=== PATIENT | male | born 1960 | race Caucasian/White ===

== ENCOUNTER 2018-05-26 09:10 | Inpatient (IN) | payer OTHER ==
[~2018-05-26] VITALS: Ht 188 cm; Wt 107.8 kg
[2018-05-26 09:59] LABS: CREATININE 1.5 mg/dL (0.5-1.5)
[2018-05-26 10:05] LABS: ALBUMIN 3.3 g/dL (3.5-5.0); BILIRUBIN,TOTAL 1.3 mg/dL (0.2-1.0); TOTAL PROTEIN, SERUM 8.4 g/dL (6.0-8.3)
[2018-05-26 10:06] LABS: BASOPHILS % (AUTO) 0.5 % (0.0-5.0); EOSINOPHILS % (AUTO) 0.6 % (0.0-8.0); LYMPHOCYTES % (AUTO) 6.9 % (21.0-51.0); MEAN CORPUSCULAR HEMOGLOBIN 30.2 pg (27.0-33.0); MEAN CORPUSCULAR HGB CONC 34.4 g/dL (32.0-36.0); MEAN CORPUSCULAR VOLUME 87.8 fL (79-99); PLATELET COUNT (AUTO) 266 K/uL (130-400); RED BLOOD CELL COUNT(AUTO) 4.45 MIL/uL (4.50-6.20); RED CELL DISTRIBUTION WIDTH 12.7 % (11.0-15.5); WHITE BLOOD COUNT (AUTO) 13.1 K/uL (4.8-10.8)
[2018-05-26] MEDS ORDERED: LEVOFLOXACIN 750 MG/D5W 150 ML 150 ML ONE (10:08)
[2018-05-26] MEDS ORDERED: ONDANSETRON HCL 4 MG/2 ML VIAL IV PRN (11:30)
[2018-05-26] MEDS ORDERED: VANCOMYCIN 1GM+NS 250ML 250 ML IV SCH (11:30)
[2018-05-26] MEDS ORDERED: MORPHINE SULFATE 4 MG/1ML SYG IV PRN (11:30)
[2018-05-26] MEDS ORDERED: ACETAMINOPHEN 325 MG TAB PO PRN ×2 (11:30)
[2018-05-26] MEDS ORDERED: VANCOMYCIN PROTOCOL PER PHARMACY IV PRN (11:30)
[2018-05-26] MEDS ORDERED: MORPHINE SULFATE 2 MG/ML 1ML SYG IV PRN (11:30)
[2018-05-26] MEDS ORDERED: HYDRALAZINE HCL 20 MG/ML VIAL IV PRN (11:30)
[2018-05-26] MEDS ORDERED: VANCOMYCIN PROTOCOL PER PHARMACY IV SCH (12:30)
[2018-05-26] MEDS ORDERED: VANCOMYCIN 1GM+NS 250ML 250 ML IV ONE (12:42)
[2018-05-26 12:45] LABS: HEMOGLOBIN A1C 6.6 % (4.0-6.0)
[2018-05-26 14:36] LABS: APPEARANCE,URINE Clear (CLEAR); BILIRUBIN,URINE Negative (NEGATIVE); COLOR,URINE Dark Yellow (YELLOW); GLUCOSE, URINE (UA) Negative (NEGATIVE); KETONES,URINE Trace mg/dL (NEGATIVE); LEUKOCYTE ESTERASE ,URINE Negative (NEGATIVE); NITRATE,URINE Negative (NEGATIVE); OCCULT BLOOD,URINE Negative (NEGATIVE); PROTEIN,URINE POS 2+ (NEGATIVE)
[2018-05-26 14:55] LABS: BACTERIA,URINE Rare /HPF (None Seen); RBC,URINE None Seen /HPF (0-1); SQUAMOUS EPITHELIAL CELL,UR None Seen /HPF (0-2); WBC,URINE 0-1 /HPF (0-1)
[2018-05-26] MEDS ORDERED: MEROPENEM 500 MG VIAL ONE (17:59)
[2018-05-26] MEDS ORDERED: SODIUM CHLORIDE 0.9% 100 ML IV ONE (17:59)
[2018-05-26 18:47] VITALS: BP 150/80
[2018-05-26] MEDS: MEROPENEM 500 MG VIAL IV SCH (19:30)
--- NOTE | 2018-05-26 19:45 | NUR ---
Admission Assessment Received pt from ED change of shift with no family around, DX: Acute Osteomyelitis,diabetic rt foot ulcer, foreign body. Routine admission assessment done, plan of care discuss made aware he is pending to be seen by Dr. Rich kiln car repairer & Dr. [place] KENT. Pt updated with all test done in ED with all concern questions addressed. Per pt claimed wound to the rt big toe, dorsal side has been for a year, seen by deferent physician but no one said anything. Pt made aware re: foreign object present in his wound which pt claimed never remembers stepping/hitting his foot. Pt also declined to have any type of vaccination.
[2018-05-26] MEDS ORDERED: COMPOUND IV REFRIGERATED 1 EACH IVSOLN MISC PRN (20:30)
[2018-05-26] MEDS ORDERED: CLOP75TA32 PO (20:47)
[2018-05-26] MEDS ORDERED: GLIP5TAB11 PO (20:47)
[2018-05-26] MEDS ORDERED: AEC81 PO (20:47)
[2018-05-26] MEDS ORDERED: ATOR10TA69 PO (20:47)
[2018-05-26] MEDS ORDERED: SITA100T12 PO (20:47)
[2018-05-26 23:00] VITALS: BP 130/91
[2018-05-27] MEDS: VANCOMYCIN 1.5 GM in SODIUM CHLORIDE 0.9% 250 ML IV SCH ×3 (00:09→21:00)
[2018-05-27] MEDS: INSULIN GLARGINE 100 UNITS/ML 10 ML VIAL SQ SCH ×2 (00:12→21:07)
[2018-05-27] MEDS: INSULIN HUMULIN R 100 UNIT/ML 3ML SQ SCH ×5 (00:13→21:08)
[2018-05-27 03:17] VITALS: BP 130/77
[2018-05-27] MEDS: MEROPENEM 500 MG VIAL IV SCH ×3 (03:48→20:59)
[2018-05-27] MEDS: INSULIN LISPRO 100 UNIT/ML 3ML SQ SCH ×3 (06:58→17:00)
[2018-05-27 07:28] VITALS: BP 134/76
[2018-05-27] MEDS: ENOXAPARIN SODIUM 40 MG/0.4 ML SYRINGE SQ SCH (11:19)
[2018-05-27] MEDS: ASPIRIN 81 MG EC TAB PO SCH (11:37)
--- NOTE | 2018-05-27 12:17 | NUR ---
Nutrition Intervention: Nutrition consult due to trigger. Pt. admitted with Dx of Acute osteomyelitis, diabetic right foot ulcer. Pt. on 75gm CCD diet. Pt. reports good p.o. intake and no problems with N/V. Labs reviewed(Alb 3.3). LBM: 05/26/18. SR-19, right big toe ulcer. BMI: 30.5, obesity Grade 1. Pt. with 2+ edema to right foot. BMI: 30.5, Obesity Grade 1. Recommendations: 1) Rec. 75gm CCD Heart healthy diet. 2) Rec. 30ml ProMod BID with B'fast and dinner meals. 3) Rec. 500mg Vit. C BID and 220mg Zn Sulfate QD to help promote wound healing. 4) Continue to monitor pt's nutritional status. 5) RD to f/u in 5-7 days. Addendum: 05/27/18 at [address] Amended: Links added.
[2018-05-27 12:21] VITALS: BP 125/95
[2018-05-27 15:39] VITALS: BP 154/98
--- NOTE | 2018-05-27 16:42 | NUR ---
INITIAL: Met with pt this afternoon to discuss dcp. Pt states that he lives w his 14 yo dtr. Prior to admission pt was independent w ambulation and ADLs. He drives where needed and does not own any DME. Pt states that he feels safe and comfortable to [place]. Will continue to follow and wait for Md recommendations. Addendum: 05/28/18 at 1644 by ANGELITA YODER CM Amended: Links added.
[2018-05-27 19:12] VITALS: BP 144/78
[2018-05-27] MEDS: ATORVASTATIN CALCIUM 10 MG TABLET PO SCH (20:59)
[2018-05-27 23:00] VITALS: BP 136/73
[2018-05-28 03:00] VITALS: BP 128/74
[2018-05-28] MEDS: MEROPENEM 500 MG VIAL IV SCH (04:24)
[2018-05-28] MEDS: GUAIFENESIN-DM 200/20 MG 10 ML PO PRN ×2 (05:39→16:17)
[2018-05-28] MEDS: INSULIN LISPRO 100 UNIT/ML 3ML SQ SCH ×3 (06:20→18:11)
[2018-05-28] MEDS: INSULIN HUMULIN R 100 UNIT/ML 3ML SQ SCH ×4 (06:22→21:00)
[2018-05-28 06:32] LABS: HEMATOCRIT 35.7 % (42-54); MEAN CORPUSCULAR HEMOGLOBIN 30.6 pg (27.0-33.0); MEAN CORPUSCULAR HGB CONC 34.9 g/dL (32.0-36.0); MEAN CORPUSCULAR VOLUME 87.5 fL (79-99); PLATELET COUNT (AUTO) 288 K/uL (130-400); RED BLOOD CELL COUNT(AUTO) 4.08 MIL/uL (4.50-6.20); RED CELL DISTRIBUTION WIDTH 12.7 % (11.0-15.5); WHITE BLOOD COUNT (AUTO) 9.2 K/uL (4.8-10.8)
[2018-05-28 06:51] LABS: ALBUMIN 2.6 g/dL (3.5-5.0); BILIRUBIN,TOTAL 0.7 mg/dL (0.2-1.0); CREATININE 1.3 mg/dL (0.5-1.5); TOTAL PROTEIN, SERUM 7.5 g/dL (6.0-8.3)
[2018-05-28 08:00] VITALS: BP 139/71
[2018-05-28] MEDS: ASPIRIN 81 MG EC TAB PO SCH (10:56)
[2018-05-28] MEDS: METOPROLOL TARTRATE 25 MG TAB PO SCH ×2 (10:57→21:47)
[2018-05-28] MEDS: CADEXOMER IODINE 40 GM GEL TP SCH (10:57)
[2018-05-28] MEDS: ENOXAPARIN SODIUM 40 MG/0.4 ML SYRINGE SQ SCH (10:57)
[2018-05-28] MEDS ORDERED: GADODIAMIDE 5 MMOL/10 ML VIAL 5 MMOL/10 ML ML IV ONE (11:06)
[2018-05-28 12:50] VITALS: BP 135/72
[2018-05-28] MEDS ORDERED: PHARMACY COMMUNICATION MISC SCH (14:45)
--- NOTE | 2018-05-28 15:05 | NUR ---
PENICILLIN ALLERGY AND ROCEPHIN Patient started on rocephin per Dr. Berumen. Patient reported an allergy to penicillin a a child where he developed hives. Dr. Berumen was made aware and stated to give the rocephin anyway. Pharmacy was made aware, as it had placed a hold on medication due to allergy. OKs to give the rocephin anyway.
[2018-05-28] MEDS: CEFTRIAXONE SODIUM 2 GM VIAL IVP SCH (15:51)
[2018-05-28 16:00] VITALS: BP 135/72
--- NOTE | 2018-05-28 16:46 | NUR ---
REHAB/NH: Met w pt this afternoon to discuss Md order/recommendation for Rehab/NH @ dc. Pt states this is not an option for him as he has a 14yo dtr at home that he needs to get home to. Pt states that he currently has a friend from out of town assisting to care for dtr while he is here. Pt states that he will speak w Md in am regarding other options such as HH vs [facility] if IV ABX or wound care needed @ dc. CM to continue to follow. Primary nurse in room during above discussion, states will also pass it along in report.
[2018-05-28 19:00] VITALS: BP 132/69
[2018-05-28] MEDS: ATORVASTATIN CALCIUM 10 MG TABLET PO SCH (21:47)
[2018-05-28] MEDS: INSULIN GLARGINE 100 UNITS/ML 10 ML VIAL SQ SCH (21:51)
[2018-05-28 23:25] VITALS: BP 134/76
[2018-05-29 03:10] VITALS: BP 131/64
[2018-05-29] MEDS: INSULIN HUMULIN R 100 UNIT/ML 3ML SQ SCH ×4 (06:10→21:00)
[2018-05-29] MEDS: INSULIN LISPRO 100 UNIT/ML 3ML SQ SCH ×3 (06:27→17:00)
[2018-05-29 06:49] LABS: HEMATOCRIT 35.2 % (42-54); MEAN CORPUSCULAR HEMOGLOBIN 29.6 pg (27.0-33.0); MEAN CORPUSCULAR HGB CONC 33.8 g/dL (32.0-36.0); MEAN CORPUSCULAR VOLUME 87.4 fL (79-99); PLATELET COUNT (AUTO) 286 K/uL (130-400); RED BLOOD CELL COUNT(AUTO) 4.03 MIL/uL (4.50-6.20); RED CELL DISTRIBUTION WIDTH 12.9 % (11.0-15.5); WHITE BLOOD COUNT (AUTO) 11.3 K/uL (4.8-10.8)
[2018-05-29 07:30] VITALS: BP 137/84
[2018-05-29] MEDS: ASPIRIN 81 MG EC TAB PO SCH (10:09)
[2018-05-29] MEDS: METOPROLOL TARTRATE 25 MG TAB PO SCH ×2 (10:09→21:42)
[2018-05-29] MEDS: ENOXAPARIN SODIUM 40 MG/0.4 ML SYRINGE SQ SCH (10:10)
[2018-05-29] MEDS: CADEXOMER IODINE 40 GM GEL TP SCH (10:11)
[2018-05-29 11:40] VITALS: BP 141/79
[2018-05-29] MEDS: CEFTRIAXONE SODIUM 2 GM VIAL IVP SCH (15:21)
--- NOTE | 2018-05-29 15:29 | NUR ---
DC Plan Discussed dcp w/ patient and Dr. Hays at bedside. Dr. Hays signed AIU form. Patient signed HANSEL and choice letter for [facility]. Patient's toe now draining. Dr. Berumen spoke to Dr. Rich on cell. Dr. Rich to come back and evaluate patient. Asked Dr. Berumen about PICC. Informed CM to not fax referral until Dr. Rich gives recommendation. CM to continue to follow. CD Addendum: 05/29/18 at 1533 by LEONEL EAST CM Amended: Links added.
[2018-05-29 16:00] VITALS: BP 140/81
--- NOTE | 2018-05-29 16:50 | NUR ---
DRSG TO HIS RT FOOT. GREAT TOE. DONE,, CLEANSE WITH SALINE PAD DRY AND APPLICATION OF ISOBORB GEL APPLICATION ON. WRAP WITH KERLIX NOTED NO DRAINAGE TO SITE, , TOLERATE WELL
--- NOTE | 2018-05-29 18:00 | NUR ---
DR. SRINIVASAN HERE AND SPOKE WITH PT . REGARDING CARE TO HIS RT FOOT.. WITH DR. ESPINOZA TO FOLLOW .CALLED THE HOUSE SUPERVIOR REGARDING SURGERY PER . ORDERS IN AM DR. SRINIVASAN REMOVE THE DRSG TO HIS RTFOOT. FOR ASESSEMENT .
[2018-05-29 19:00] VITALS: BP 124/98
--- NOTE | 2018-05-29 20:24 | NUR ---
PATIENT REFUSED PROCEDURE Patient states he will not have MD Rich do the procedure because MD Rich took very long to see patient. Apologized for the delay and explained to patient that his foot is very infected and may not be a good idea to delay procedure. Patient states he doesn't care and wants a new foot doctor or he will go to [facility]. Nakul Childs NP is rounding on the floor. Spoke to her of patient refusing MD Rich to do I&D on right foot. CORE CLEANER states to please call MD Rich to let him know of patient's request. Will page MD Rich.
--- NOTE | 2018-05-29 20:30 | NUR ---
MD RICH Paged MD Rich; returned paged. Informed MD Rich of patient refusing tomorrow's procedure of I&D to right foot. Explained that patient was very upset for MD showing up late to see patient. After trying to convince patient to reconsider, patient states he does not want MD Rich to touch him. MD Rich states to please inform MD Amin and MD Paredes. Will page MD Paredes. DIANNE Childs states she will notify MD Amin. Addendum: 05/29/18 at 2223 by JONELLE ALVARES LVN LVN MD RICH STATES HE IS OFF THE CASE AND TO PLEASE INFORM MD AMIN AND MD PAREDES.
--- NOTE | 2018-05-29 20:40 | NUR ---
MD PAREDES Paged MD Paredes; returned page. Informed him of patient refusing I&D procedure for tomorrow and requesting for MD to be removed from the case. MD Paredes states to add & consult MD Back. Will page MD Back.
--- NOTE | 2018-05-29 20:42 | NUR ---
MD BACK Paged MD Back. Returned page and informed him of MD Berumen's request for MD Back to be consulted. Explained and informed MD Back of patient's diagnose, health information, lab results, and foot x-ray & mri. MD Back states he will come by some time tonight to see patient.
[2018-05-29] MEDS: INSULIN GLARGINE 100 UNITS/ML 10 ML VIAL SQ SCH (21:40)
[2018-05-29] MEDS: ATORVASTATIN CALCIUM 10 MG TABLET PO SCH (21:42)
--- NOTE | 2018-05-29 22:05 | NUR ---
PAGED MD CAROLINE Back called to inform that he would not be able to see patient and be on the case. also states he would not be able to do procedure due to his patients and other procedures. MD Back apologized and asked for MD Lin Peña to be consulted. [employer] stores and agencies supervisor and PAYROLL [employer] BENEFITS SPECIALIST Nakul Childs provided MD's phone number. Called to [phone]; no answer but did leave message on voice mail. Will endorse to day nurse to consult MD Peña. Explained to patient that MD Back will not be able to see patient due to overflow of procedures with his current patients. However, patient was informed that MD Back recommended MD Peña and will be page in am. Recommended patient to be NPO after midnight and bathed early am just incase MD Peña wants to do a procedure tomorrow, 05/30/18. Patient states he is understands and is ok with the plan.
[2018-05-29 23:00] VITALS: BP 121/82
[2018-05-30 03:00] VITALS: BP 118/64
[2018-05-30 05:40] LABS: BASOPHILS % (AUTO) 0.6 % (0.0-5.0); EOSINOPHILS % (AUTO) 4.1 % (0.0-8.0); HEMATOCRIT 36.8 % (42-54); LYMPHOCYTES % (AUTO) 14.5 % (21.0-51.0); MEAN CORPUSCULAR HEMOGLOBIN 30.2 pg (27.0-33.0); MEAN CORPUSCULAR HGB CONC 34.4 g/dL (32.0-36.0); MEAN CORPUSCULAR VOLUME 87.7 fL (79-99); MONOCYTES % (AUTO) 9.5 % (3.0-13.0); NEUTROPHILS % (AUTO) 71.3 % (40.0-77.0); PLATELET COUNT (AUTO) 333 K/uL (130-400); RED CELL DISTRIBUTION WIDTH 12.8 % (11.0-15.5); WHITE BLOOD COUNT (AUTO) 10.5 K/uL (4.8-10.8)
[2018-05-30 05:54] LABS: CREATININE 1.2 mg/dL (0.5-1.5); POTASSIUM 4.1 mmol/L (3.5-5.1)
[2018-05-30] MEDS: INSULIN HUMULIN R 100 UNIT/ML 3ML SQ SCH ×2 (06:31→11:30)
[2018-05-30] MEDS: INSULIN LISPRO 100 UNIT/ML 3ML SQ SCH ×2 (07:18→11:30)
[2018-05-30 08:00] VITALS: BP 129/85
--- NOTE | 2018-05-30 08:15 | NUR ---
DR. LUU WAS CALLED , WITH NO ANSWER . MESSAGE LEFT OF THE CONSULTATION .
[2018-05-30] MEDS: ASPIRIN 81 MG EC TAB PO SCH (09:00)
[2018-05-30] MEDS: ENOXAPARIN SODIUM 40 MG/0.4 ML SYRINGE SQ SCH (09:00)
[2018-05-30] MEDS: CADEXOMER IODINE 40 GM GEL TP SCH (09:00)
[2018-05-30 09:02] LABS: INR 1.08 (0.85-1.15); PARTIAL THROMBOPLASTIN TIME 30.9 SEC (26.3-35.5); PROTHROMBIN TIME 11.3 SEC (9.6-11.6)
[2018-05-30] MEDS: METOPROLOL TARTRATE 25 MG TAB PO SCH (09:59)
[2018-05-30 12:18] VITALS: BP 140/74
--- NOTE | 2018-05-30 13:30 | NUR ---
PT . STATED THAT HE WAS NOT GOING TO WAIT FOR THE DR. ALL DAY LONG WANTS TO LEAVE AMA . STATED THAT HE WOULD GO TO SEE HIS PRIVATE DR. TO GET CARE. REVIEW THE AMA STATED THAT IT WAS OKAY
--- NOTE | 2018-05-30 14:00 | NUR ---
AMA PT . SIGNED AMA . REFUSAL TO SUBMIT TREATMENT /PROCEDURE SIGNED . SL TO HIS RT HAND ,DC . . WITH NO HEMATOMA NOTED. SITE PRESSURE DRSG APPLICATION ON .
== END 2018-05-30 14:00 | disposition left against medical advice (07) | DRG 344 ==
LOC: EDH 09:10 → EDHIP 11:16 → 3DH 19:18
PROVIDERS: ADMIT Internal Medicine; ATTEND Internal Medicine
DX: M86.171 Other acute osteomyelitis, right ankle and foot (principal); G04.91 Myelitis, unspecified; E87.1 Hypo-osmolality and hyponatremia; L03.115 Cellulitis of right lower limb; E11.621 Type 2 diabetes mellitus with foot ulcer; L97.519 Non-pressure chronic ulcer of other part of right foot with unspecified severity; E11.69 Type 2 diabetes mellitus with other specified complication; E78.5 Hyperlipidemia, unspecified; E66.9 Obesity, unspecified; Z68.30 Body mass index [BMI] 30.0-30.9, adult; Z88.0 Allergy status to penicillin; Z91.19 Patient's noncompliance with other medical treatment and regimen; Z86.73 Personal history of transient ischemic attack (TIA), and cerebral infarction without residual deficits; Z83.3 Family history of diabetes mellitus
CPT/HCPCS: 36415; 73630; 73720; 80048; 80053; 80202; 81001; 82948; 83036; 83605; 85025; 85027; 85610; 85651; 85730; 86140; 87040; 87070; 87076; 87077; 87186; A4218; A9579; G0378; J0696; J1650; J1815; J1956; J2185; J3370; J7030